=== PATIENT | male | born 1985 | race Caucasian/White ===

== ENCOUNTER 2021-11-11 15:09 | Outpatient (CLI) | payer BC, SELFPAY ==
[2021-11-11 17:27] LABS: Chloride* 101 mmol/L (96-114); Sodium* 138 mmol/L (135-149)
[2021-11-11 17:30] LABS: Blood Urea Nitrogen* 22 mg/dL (5-24); Calcium* 8.9 mg/dL (8.4-10.6); Carbon Dioxide* 28 mmol/L (20-32); Creatinine* 1.1 mg/dL (0.5-1.5); Estimated Glomerular Filt Rate 89 ml/min; Glucose* 104 mg/dL (60-115)
== END 2021-11-11 15:10 | disposition home or self-care (01) ==
LOC: NFLDREF 15:12
PROVIDERS: PCP Internal Medicine; Visit Provider Internal Medicine
DX: R42 Dizziness and giddiness (principal); I10 Essential (primary) hypertension
CPT/HCPCS: 80048

== ENCOUNTER 2022-01-21 14:00 | Outpatient (RCR) | payer BC, SELFPAY | END 2022-04-15 12:47 | disposition home or self-care (01) | PROVIDERS: PCP Internal Medicine; Visit Provider Internal Medicine | DX: M54.2 Cervicalgia (principal); Z51.89 Encounter for other specified aftercare | CPT/HCPCS: 97110; 97140; 97161; 97535 ==

== ENCOUNTER 2022-12-27 07:40 | Outpatient (CLI) | payer OTHER, SELFPAY | END 2022-12-27 07:41 | disposition home or self-care (01) | LOC: NFLDREF 12-28 15:10 | PROVIDERS: PCP Internal Medicine; Referring Provider Internal Medicine; Visit Provider Internal Medicine | DX: I10 Essential (primary) hypertension (principal); Z13.6 Encounter for screening for cardiovascular disorders | CPT/HCPCS: 80053; 80061 ==

== ENCOUNTER 2024-03-22 07:50 | Outpatient (CLI) | payer OTHER, SELFPAY | END 2024-03-22 07:51 | disposition home or self-care (01) | LOC: NFLDREF 04-01 07:13 | PROVIDERS: PCP Internal Medicine; Referring Provider Internal Medicine; Visit Provider Internal Medicine | DX: I10 Essential (primary) hypertension (principal); Z13.6 Encounter for screening for cardiovascular disorders | CPT/HCPCS: 80053; 80061 ==

== ENCOUNTER 2024-04-30 07:13 | Day surgery (SDC) | payer OTHER, SELFPAY ==
[2024-04-30] VITALS (10 sets, daily range): BP systolic 128–153; BP diastolic 79–87; PULSE 69–76; RESP 16; TEMP 36.7–36.9; O2SAT 95–98; BMI 36.5
[2024-04-30] MEDS: BUPIVACAINE 0.5% 30 ML INJECTION (07:45)
[2024-04-30] MEDS: ETHYL CHLORIDE 1 APPLICATION 1 APPLIC TOPICAL (07:45)
[2024-04-30] MEDS: LIDOCAINE 1%-EPI 1:100,000 20 ML INFILTRATI (07:45)
[2024-04-30] MEDS: BACITRACIN OINTMENT BULK TUBE 1 APPLIC TOPICAL (09:30)
--- NOTE | 2024-04-30 09:37 | P.ORPRC_ITS ---
Procedure Note Date of procedure: 04/30/24 Procedure: PREOPERATIVE DIAGNOSIS: 1. Left carpal tunnel syndrome 2. Left long finger flexor tenosynovitis - trigger finger POSTOPERATIVE DIAGNOSIS: 1. Left carpal tunnel syndrome 2. Left long finger flexor tenosynovitis - trigger finger PROCEDURE: 1. Left open carpal tunnel release 2. Left open long finger A1 azam release/trigger finger release SURGEON: Manuel Ashley MD. CONSTRUCTION SUPERVISOR: Cr Early PA-C ANESTHESIA: Local anesthetic (50:50 mixture of 1 % lidocaine with epi and 0.5% marcaine plain) - 10ml total IMPLANTS: None EBL: 2 mL TOURNIQUET: None COMPLICATIONS: None evident INDICATIONS: The patient is a pleasant 39-year-old male who has experienced left hand numbess/tingling affecting the radial 3.5 digits for multiple months. It has progressively gotten worse. In addition, his left long finger has been catching/triggering. Worse in the morning. 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 Nonoperative management has been tried and failed, and therefore surgery was recommended. DESCRIPTION OF PROCEDURE: Following a thorough discussion of risks, benefits, and alternatives consent was obtained and the operative extremity was marked. The patient was brought to the operating room and placed supine on the operating table. Local anesthesia induction was undertaken in preop holding. No antibiotics were administered as this was planned to be a local case only. Proper time-out was performed identifying proper patient, site, and procedure. The operative extremity was prepped and draped in the appropriate sterile fashion using ChloraPrep. An incision was made in line with the radial border of the ring finger beginning 1 cm distal to the distal wrist crease and progressing for another 2.5cm distal. Caution was taken to stay proximal to Underwood's cardinal line. Sharp incision through the skin, subcutaneous tissue, and palmar fascia was performed. The thenar musculature was bluntly elevated off the transverse carpal ligament. The ligament was directly visualized, and divided sharply with a 15 blade. This was released from its most proximal to the most distal extent. Metzenbaum scissor was also utilized to release the fascia extension proximally. We confirmed complete release of the transverse carpal ligament. Thereafter, we turned our attention to the left long trigger finger release. An incision was made on the palmar surface of the hand overlying the MCP joint region of the appropriate digit(s) respecting the palmar creases being cautious not to cross these perpendicularly. Sharp incision through the skin, and blunt dissection through subcutaneous tissue allowing protection of crossing neurologic structures. The A1 azam was visualized directly. It was incised sharply with a 15 blade. It was released completely from its distal to proximal extent under direct visualization. The tendon was inspected and found to be mildly striated consistent with some friction. Otherwise, it was intact. The tendon was removed out of the wound, and further inspected. The patient was asked to manually flex and extend the digits and showed no further catching. The catching which was visualized after tourniquet inflation, was no longer evident with reproduction of a manual fist and relaxation. Closure was performed with 4-O nylon in interrupted fashion. Soft dressings were applied, and the patient was transferred to the recovery room in stable condition. PLAN: 1. Encourage elevation of the operative extremity. 2. Range of motion of the fingers and hand/wrist as tolerated. 3. Ibuprofen/acetaminophen and/or oxycodone as needed for pain control. 4. Follow up with PA visit or nurse visit in 12-16 days for wound check and suture removal.
--- NOTE | 2024-04-30 10:12 | SUR.PHASEII ---
pt declined his ice pack.
== END 2024-04-30 10:16 | disposition home or self-care (01) ==
PROVIDERS: PCP Internal Medicine; Visit Provider Orthopaedic Surgery Sports Medicine
PROC: (CPT 64721; principal; 2024-04-30 09:00)
DX: G56.02 Carpal tunnel syndrome, left upper limb (principal); M65.332 Trigger finger, left middle finger; M65.842 Other synovitis and tenosynovitis, left hand
CPT/HCPCS: 64721; 26055; J0665

== ENCOUNTER 2025-02-27 06:15 | Day surgery (SDC) | payer OTHER, SELFPAY ==
[2025-02-27] VITALS (9 sets, daily range): BP systolic 108–125; BP diastolic 56–75; PULSE 70–75; RESP 16; TEMP 36.7–36.9; O2SAT 94–99; BMI 36.5
[2025-02-27] MEDS: BUPIVACAINE 0.5% 30 ML INJECTION (06:55)
[2025-02-27] MEDS: ETHYL CHLORIDE 1 APPLICATION 1 APPLIC TOPICAL (06:55)
--- NOTE | 2025-02-27 07:33 | P.ORPRC_ITS ---
Procedure Note Date of procedure: 02/27/25 Procedure: PREOPERATIVE DIAGNOSIS: 1. Right carpal tunnel syndrome POSTOPERATIVE DIAGNOSIS: 1. Right carpal tunnel syndrome PROCEDURE: 1. Right open carpal tunnel release SURGEON: Manuel Ashley MD. FLEET ASSISTANT: MARICEL Guerrero ANESTHESIA: Local anesthetic (50:50 mixture of 1% lidocaine with epi and 0.5% marcaine plain) - 10ml total IMPLANTS: None EBL: 2 mL TOURNIQUET: None COMPLICATIONS: None evident INDICATIONS: The patient is a pleasant 39-year-old male who has experienced right hand numbess/tingling affecting the radial 3.5 digits for multiple months. It has progressively gotten worse. Nonoperative management has been tried and failed, and therefore surgery was recommended. DESCRIPTION OF PROCEDURE: Following a thorough discussion of risks, benefits, and alternatives consent was obtained and the operative extremity was marked. The patient was brought to the operating room and placed supine on the operating table. Local anesthesia induction was undertaken in preop holding. No antibiotics were administered as this was planned to be a local case only. Proper time-out was performed identifying proper patient, site, and procedure. The operative extremity was prepped and draped in the appropriate sterile fashion using ChloraPrep. An incision was made in line with the radial border of the ring finger beginning 1 cm distal to the distal wrist crease and progressing for another 2.5cm distal. Caution was taken to stay proximal to Underwood's cardinal line. Sharp incision through the skin, subcutaneous tissue, and palmar fascia was performed. The thenar musculature was bluntly elevated off the transverse carpal ligament. The ligament was directly visualized, and divided sharply with a 15 blade. This was released from its most proximal to the most distal extent. Metzenbaum scissor was also utilized to release the fascia extension proximally. We confirmed complete release of the transverse carpal ligament. Closure was performed with 4-O nylon in interrupted fashion. Soft dressings were applied, and the patient was transferred to the recovery room in stable condition. PLAN: 1. Encourage elevation of the operative extremity. 2. Range of motion of the fingers and hand/wrist as tolerated. 3. Ibuprofen/acetaminophen as needed for pain control. 4. Follow up with PA visit or nurse visit in 12-16 days for wound check and suture removal.
[2025-02-27] MEDS: BACITRACIN OINTMENT BULK TUBE 1 APPLIC TOPICAL (07:35)
== END 2025-02-27 07:57 | disposition home or self-care (01) ==
LOC: OR 06:16
PROVIDERS: PCP Internal Medicine; Visit Provider Orthopaedic Surgery Sports Medicine
PROC: (CPT 64721; principal; 2025-02-27 07:15)
DX: G56.01 Carpal tunnel syndrome, right upper limb (principal)
CPT/HCPCS: 64721; J0665